=== PATIENT | male | born 1965 | race Caucasian/White ===

== ENCOUNTER 2019-01-16 21:57 | Emergency (ER) | payer BC ==
[~2019-01-16] VITALS: Ht 177.8 cm; Wt 90.7 kg
[2019-01-16] MEDS ORDERED: IBUPROFEN 600 MG TAB PO STA (22:11)
[2019-01-16] MEDS ORDERED: HYDROCODONE/APAP 5MG-325MG TAB PO PRN (22:15)
[2019-01-16] MEDS ORDERED: TETANUS/DIPHTHERIA TOX ADULT 0.5 ML SYR IM ONE (22:15)
[2019-01-16] MEDS ORDERED: IBUPROFEN 200 MG TAB ONE (22:22)
[2019-01-16] MEDS ORDERED: HYDROCODONE/APAP 5MG-325MG TAB ONE (22:23)
[2019-01-16] MEDS ORDERED: TETANUS/DIPHTHERIA TOX ADULT 0.5 ML SYR ONE (22:23)
--- NOTE | 2019-01-16 23:10 | Diagnostic Imaging Report ---
Exam: Right knee 2 views History: Object fell on knee Comparison: None. Findings: No acute, displaced fracture or dislocation. Joint space is well-maintained. Soft tissues are unremarkable. Impression: No acute osseous abnormality. Signed by: Dr. Gene Easton M.D. on 01/16/2019 11:06 PM
[2019-01-16 23:35] VITALS: BP 141/75
== END 2019-01-16 23:47 | disposition home or self-care (01) ==
LOC: FSED 21:57
DX: S81.031A Puncture wound without foreign body, right knee, initial encounter (principal); S83.411A Sprain of medial collateral ligament of right knee, initial encounter; S76.811A Strain of other specified muscles, fascia and tendons at thigh level, right thigh, initial encounter; W20.8XXA Other cause of strike by thrown, projected or falling object, initial encounter; Y93.H3 Activity, building and construction; Y92.008 Other place in unspecified non-institutional (private) residence as the place of occurrence of the external cause
CPT/HCPCS: 90471; 90714; 99283